=== PATIENT | male | born 1980 | race Caucasian/White ===

== ENCOUNTER 2021-10-14 21:17 | Emergency (ER) | payer OTHER ==
[2021-10-14] MEDS: Diphtheria,Pertussis(Acell),Tetanus Vaccine 0.5 ML SDV IM ONE (21:45)
[2021-10-14] MEDS ORDERED: Cephalexin 250 MG Cap ONE (21:50)
[2021-10-15] MEDS ORDERED: Lidocaine 1% 30 ML SDV INJECT ONE (21:47)
== END 2021-10-14 22:00 | disposition home or self-care (01) ==
LOC: LB.ED 21:17
DX: S01.511A Laceration without foreign body of lip, initial encounter (principal); Z23 Encounter for immunization; W21.01XA Struck by football, initial encounter
CPT/HCPCS: 12001; 12011; 90471; 90715; 99281; 99282-25; A9270-GY